=== PATIENT | female | born 1955 | race Caucasian/White ===

== ENCOUNTER 2016-09-08 13:51 | Emergency (ER) | payer OTHER ==
--- NOTE | ~2016-09-08 | CR150 ---
[facility] A Service of [facility] RADIOLOGY TEXT RESULTS PATIENT: PEPE MURO LOCATION: [facility] : 55 UNIT #: [id number] AGE: [address]: Jaqui Timmons MD SEX: F ORDER DR: [id number] [facility] [address] [place], [place] [address] [id number] E MR#: [id number] Acc #: [id number] NAME: PEPE MRUO : 1955 SEX: F STUDY DATE/TIME: 09/08/2016 15:57 UNIT: [facility] ROOM: STUDY DESCRIPTION: CR Hip Min 2 Views Lt Attending Physician: Jaqui Timmons M.D. Ordering Physician: Jaqui Timmons M.D. Primary Care Physician: Primary Care Physician No MEDICAL IMAGING REPORT This report is preliminary unless electronic signature is present EXAM Left hip series, 09/08/2016 HISTORY 60-year-old female in the ED complaining of low back pain and left hip pain beginning yesterday. No reported acute injury. TECHNIQUE Two-view left hip series. FINDINGS No fracture, dislocation, arthropathy or other osseous abnormality is demonstrated. IMPRESSION Negative left hip. Dictated by... Ranjit Mederos M.D. THIS IS AN ELECTRONICALLY VERIFIED REPORT Ranjit Mederos M.D. at 09/09/2016 4:35 PM KAREEN/gabriela TD: 09/08/2016 20:43 JOB #: [id number] MEDICAL IMAGING REPORT Page 1 of 1 COPY
--- NOTE | ~2016-09-08 | CR181 ---
[facility] A Service of [facility] RADIOLOGY TEXT RESULTS PATIENT: PEPE MURO LOCATION: [facility] : 55 UNIT #: [id number] AGE: [address]: Jaqui Timmons MD SEX: F ORDER DR: [id number] [facility] [address] [place] [address] [place], [place] [address] [id number] E MR#: [id number] Acc #: [id number] NAME: PEPE MURO : 1955 SEX: F STUDY DATE/TIME: 09/08/2016 15:53 UNIT: [facility] ROOM: STUDY DESCRIPTION: CR Lumbar Spine 2 or 3 Views Attending Physician: Jaqui Timmons M.D. Ordering Physician: Jaqui Timmons M.D. Primary Care Physician: Primary Care Physician No MEDICAL IMAGING REPORT This report is preliminary unless electronic signature is present EXAM Lumbar spine 09/08/2016 HISTORY 60-year-old female in the ED complaining of low back pain and left hip pain beginning 1 day prior. No reported acute injury. TECHNIQUE Three-view lumbar spine series. FINDINGS Minimal to mild degenerative disc space changes throughout the lumbar spine. No evidence of acute or chronic fracture deformity, or additional osseous lesion. Lumbar vertebral alignment is normal. IMPRESSION 1. No acute osseous abnormality. 2. Minimal to mild degenerative disc space changes throughout the lumbar spine. Dictated by... Ranjit Mederos M.D. THIS IS AN ELECTRONICALLY VERIFIED REPORT Ranjit Mederos M.D. at 09/09/2016 4:35 PM KAREEN/gabriela TD: 09/08/2016 20:39 JOB #: [id number] MEDICAL IMAGING REPORT Page 1 of 1 COPY
== END 2016-09-08 16:30 | disposition home or self-care (01) ==
LOC: CED 13:51
DX: S70.02XA Contusion of left hip, initial encounter (principal); I10 Essential (primary) hypertension; F17.200 Nicotine dependence, unspecified, uncomplicated; V89.2XXA Person injured in unspecified motor-vehicle accident, traffic, initial encounter; Y92.410 Unspecified street and highway as the place of occurrence of the external cause
CPT/HCPCS: 72100; 73502; 99284